=== PATIENT | male | born 1960 | race Caucasian/White ===

== ENCOUNTER → 2020-04-18 14:32 | Outpatient (BNVA) | payer BC, SELFPAY | PROVIDERS: PCP Internal Medicine Pulmonary Disease; Visit Provider Urology | DX: Z76.89 Persons encountering health services in other specified circumstances (principal) ==

== ENCOUNTER → 2021-06-03 11:10 | Outpatient (BNVA) | payer BC, SELFPAY | PROVIDERS: PCP Internal Medicine; Visit Provider Urology ==

== ENCOUNTER 2022-05-27 07:29 | Outpatient (REF) | payer BC, SELFPAY ==
[2022-05-27 09:25] LABS: Prostate Specific Antigen 0.62 ng/mL (<0.05-4.0)
== END 2022-05-27 07:30 | disposition home or self-care (01) ==
LOC: HO.LAB 07:29
PROVIDERS: PCP Internal Medicine; Visit Provider Urology
DX: Z12.5 Encounter for screening for malignant neoplasm of prostate (principal); N40.1 Benign prostatic hyperplasia with lower urinary tract symptoms; N13.8 Other obstructive and reflux uropathy
CPT/HCPCS: 36415; 84153

== ENCOUNTER → 2022-06-04 11:21 | Outpatient (BNVA) | payer BC, SELFPAY | PROVIDERS: PCP Internal Medicine; Visit Provider Urology | DX: N40.1 Benign prostatic hyperplasia with lower urinary tract symptoms (principal); N13.8 Other obstructive and reflux uropathy; N52.01 Erectile dysfunction due to arterial insufficiency | CPT/HCPCS: 51798 ==

== ENCOUNTER → 2022-08-07 09:31 | Outpatient (BNVA) | payer BC, SELFPAY | PROVIDERS: PCP Internal Medicine; Visit Provider Urology | DX: Z13.89 Encounter for screening for other disorder (principal) ==

== ENCOUNTER 2023-02-10 10:42 | Outpatient (AMB) | payer BC, SELFPAY ==
--- NOTE | 2023-02-10 10:50 | MHC.OFFVIS ---
Intake Intake Visit Reasons: 6m/PVR Intake Note: Patient is Present for Follow Up PVR Urology Medication: Tadalafil, Doxazosin (Patient states he is no longer taking Sildenafil) Antibiotic Allergies: None Blood Thinners: None [facility] PVR: 56 Allergies No Known Allergies Allergy (Verified 02/10/23 10:52) Medication List - Last Reconciled 02/10/23 by Bucky Boyce MD doxazosin 8 mg PO DAILY sildenafil 100 mg PO DAILY PRN 30 days tadalafil 20 mg PO ONCE PRN 30 days tadalafil 20 mg PO .PRN 30 days tadalafil 5 mg PO DAILY 90 days HPI HPI Comments History of Present Illness Details Octaviano is a pleasant male. He is a patient of Dr. Barbosa. He is seen for the following urologic conditions - lower urinary tract symptoms - renal cyst - erectile dysfunction Good response to daily tadalafil with on demand addition Refilled provided Six month follow-up Lower Urinary Tract Symptoms: Current visit is for further evaluation of, lower urinary tract symptoms, predominate obstructive symptoms. Current treatment includes medication, alpha ivett, , doxazosin 8mg Prostate Symptom Score Moderate (9-19), Bother 3 04/19 , Mild (0-8), Bother 2. Symptoms include intermittency, weak stream, straining, nocturia (>2) Results from testing include uroflow was performed Yes with a voided volume of 246 with a maximum flow rate (Q max) 11.8 based on the [place] nomagram this represents the following percentile 10 the following patterns were seen capped renal/bladder us Yes date 09/14/2016 PVR 24 prostate size 48 Prior Prostate Score moderate. PSA 09/16 0.8 PCP 09/17 0.6, T 410, 04/21 0.6, 06/24 1.4, 05/25 0.6 Prostate volume <30 gm. Renal lesion: repeat US in 2019. They present for reevaluation of renal mass characterized as, left side, simple cyst. The renal mass was diagnosed incidentally. Imaging included 09/16 , a renal ultrasound, no progression, showing class I cyst(s), >5.9 cm in size, on the left 03/21 , a renal ultrasound, showing class I cyst(s), left 7.8 cm cyst. Erectile dysfunction: He presents today for for continued evaluation and management of erectile dysfunction. Current treatment includes 5 mg daily tadalafil 20 mg on demand - Viagra/sildenafil - nasal congestion At this time he experiences erections are partial and insufficient for vaginal penetration, GILLIAN 8-11 Moderate ED. Currently they are in a stable relationship. Recent labs included 09/16 , a testosterone level 359. Overall he is satisfied with the current management. Therapeutic plan includes continue tadalafil Review of Systems Const Denies chills and Denies fever(s) Card Reports no additional complaints and Denies syncope Resp Denies cough GI Denies abdominal pain and Denies heartburn Reports as per HPI and Denies change in libido Neuro Denies syncope Psych Denies change in libido Endo Denies change in libido Physical Exam Const General: cooperative, healthy appearing, comfortable and no acute distress Orientation/consciousness: patient oriented x3 HEENT Face and sinus: Yes normal facial exam Mouth: moist mucous membranes Neck Neck: Yes normal visual inspection, Yes full ROM and Yes trachea midline Chest Chest palpation & inspection: normal inspection of the chest Resp Effort & Inspection: normal respiratory effort, able to speak in complete sentences and no respiratory distress GI Inspection: Yes normal to inspection Back/Spine/Pelvis Cervical Spine: normal cervical lordosis Thoracic/Lumbar Spine: thoracic and lumbar spine normal to inspection Skin General skin exam: no rashes or lesions noted Neuro General: patient oriented x3, gait normal, tone normal and moves all extremities Extrem General: Yes normal to inspection and Yes capillary refill normal Office Procedures Post Void Residual Post Residual Void Post Void Residual (PVR): 56 36872-Pisy Void Residual by ultrasound Results AMB Urinalysis, Automated UA Leukoctes 0 Chun/uL Last Edit by GREGG Maria on 02/10/23 10:58 UA Nitrite Negative Last Edit by GREGG Maria on 02/10/23 10:58 UA Urobilinogen 0.2 mg/dL Last Edit by GREGG Maria on 02/10/23 10:58 UA Protein 0 mg/dL Last Edit by GREGG Maria on 02/10/23 10:58 UA pH 6.5 Last Edit by GREGG Maria on 02/10/23 10:58 UA Blood 0 Mukund/uL Last Edit by GREGG Maria on 02/10/23 10:58 UA Specific [place] 1.010 Last Edit by GREGG Maria on 02/10/23 10:58 UA Ketone Negative Last Edit by ANDERS MariaA on 02/10/23 10:58 UA Bilirubin 0 mg/dL Last Edit by Madison Hernandez RMA on 02/10/23 10:58 UA Glucose 0 mg/dL Last Edit by ANDERS MariaA on 02/10/23 10:58 Results Reviewed Results Reviewed: Laboratory Last Values Urine pH (Auto) 6.5 02/10/23 10:53 Specific [place] (Auto) 1.010 02/10/23 10:53 Urine Protein (Auto) 0 mg/dL 02/10/23 10:53 Glucose (UA)(Auto) 0 mg/dL 02/10/23 10:53 Urine Ketones (Auto) Negative 02/10/23 10:53 Urine Blood (Auto) 0 Mukund/uL 02/10/23 10:53 Urine Nitrite (Auto) Negative 02/10/23 10:53 Urine Bilirubin (Auto) 0 mg/dL 02/10/23 10:53 Urine Urobilinogen (Auto) 0.2 mg/dL 02/10/23 10:53 Leukocyte Esterase (Auto) 0 Chun/uL 02/10/23 10:53 Assessment & Plan Assessment & Plan (1) BPH w urinary obs/LUTS: Code(s): N40.1 - Benign prostatic hyperplasia with lower urinary tract symptoms; N13.8 - Other obstructive and reflux uropathy (2) Erectile dysfunction due to arterial insufficiency: Code(s): N52.01 - Erectile dysfunction due to arterial insufficiency Plan Six month follow-up Orders: Orders AMB Post Void Residual by ultrasound 02/10/23 N13.8 - Other obstructive and reflux uropathy, N40.1 - Benign prostatic hyperplasia with lower urinary tract symptoms Prostate Specific Antigen 6 Months N52.01 - Erectile dysfunction due to arterial insufficiency AMB Urinalysis Automated 02/10/23 Z13.9 - Encounter for screening, unspecified Patient Instructions: Imaging studies, laboratory and physical exam results were discussed and reviewed in detail. No major barriers to patient understanding were identified. An opportunity to ask questions regarding the treatment plan was provided. All questions were answered. The patient expressed understanding and agreement with the above treatment plan. The patient is aware they should contact our office by phone for worsening of their current condition or the appearance of new urologic symptoms. Compliance is encouraged with any medications and followup testing that is ordered. It is a privilege to participate in the urologic care of your patient. If you have any questions or concerns regarding treatment for the above conditions, or other urologic issues, please do not hesitate to contact me. The office telephone contact is [phone]. This note is constructed using voice recognition software. While every effort has been made to ensure accuracy sales representative gas service errors may have been included. Yours sincerely, Dr Bucky Boyce MD, N[facility] - Urology Providers of Expert, Compassionate Care for the Genitourinary System Coding Level of Care Code Est Pt Level 3 (56150) Diagnoses BPH w urinary obs/LUTS N40.1; N13.8 Erectile dysfunction due to arterial insufficiency N52.01 CPT Codes Post Residual Void - PVR CPT Code: 47385-Phel Void Residual by ultrasound ([id number])
== END 2023-02-10 11:41 | disposition home or self-care (01) ==
PROVIDERS: PCP Internal Medicine; Visit Provider Urology
DX: N40.1 Benign prostatic hyperplasia with lower urinary tract symptoms (principal); N13.8 Other obstructive and reflux uropathy; N52.01 Erectile dysfunction due to arterial insufficiency
CPT/HCPCS: 99213

== ENCOUNTER → 2023-02-10 10:42 | Outpatient (BNVA) | payer BC, SELFPAY | PROVIDERS: Visit Provider Urology | DX: N40.1 Benign prostatic hyperplasia with lower urinary tract symptoms (principal); N13.8 Other obstructive and reflux uropathy; N52.01 Erectile dysfunction due to arterial insufficiency; N28.1 Cyst of kidney, acquired | CPT/HCPCS: 51798; 81003 ==

== ENCOUNTER 2023-08-31 13:25 | Outpatient (AMB) | payer BC, SELFPAY ==
--- NOTE | 2023-08-31 13:26 | MHC.OFFVIS ---
Intake Visit Reasons: 6m/PSA(Set)Confirmed Intake Note: Patient is Present for Telephone Follow Up Urology Med: Doxazosin,Tadalafil, Sildenafil Antibiotic Allergy: None Blood Thinner: None Allergies No Known Allergies Allergy (Verified 08/31/23 13:28) HPI Comments Details: Octaviano is a pleasant male. He is a patient of Dr. Barbosa. He is seen for the following urologic conditions - lower urinary tract symptoms - renal cyst - erectile dysfunction Telemedicine Evaluation 15 min Consultation [employer] Milad Video Six-month follow-up Moderately good response to daily tadalafil with on demand Does have facial flushing Discussed this is a minus side effect Has rapid deflation Discussed penile constriction band or silicon ring. Information texted Refilled provided Six month follow-up Lower Urinary Tract Symptoms: Current visit is for further evaluation of, lower urinary tract symptoms, predominate obstructive symptoms. Current treatment includes medication, alpha ivett, , doxazosin 8mg Prostate Symptom Score Moderate (9-19), Bother 3 04/19 , Mild (0-8), Bother 2. Symptoms include intermittency, weak stream, straining, nocturia (>2) Results from testing include uroflow was performed Yes with a voided volume of 246 with a maximum flow rate (Q max) 11.8 based on the [place] nomagram this represents the following percentile 10 the following patterns were seen capped renal/bladder us Yes date 09/14/2016 PVR 24 prostate size 48 Prior Prostate Score moderate. PSA 09/16 0.8 PCP, 09/17 0.6, T 410, 04/21 0.6, 06/24 1.4, 05/25 0.6, 06/26 0.5 Prostate volume <30 gm. Renal lesion: repeat US in 2019. They present for reevaluation of renal mass characterized as, left side, simple cyst. The renal mass was diagnosed incidentally. Imaging included 09/16 , a renal ultrasound, no progression, showing class I cyst(s), >5.9 cm in size, on the left 03/21 , a renal ultrasound, showing class I cyst(s), left 7.8 cm cyst. Erectile dysfunction: He presents today for for continued evaluation and management of erectile dysfunction. Current treatment includes 5 mg daily tadalafil 20 mg on demand - Viagra/sildenafil - nasal congestion At this time he experiences erections are partial and insufficient for vaginal penetration, GILLIAN 8-11 Moderate ED. Currently they are in a stable relationship. Recent labs included 09/16 , a testosterone level 359. Overall he is satisfied with the current management. Therapeutic plan includes continue tadalafil Review of Systems Const All systems reviewed & are unremarkable except as noted in HPI and below Reports no additional complaints Resp Reports no additional complaints GI Reports no additional complaints Reports as per HPI Musc Reports no additional complaints Physical Exam Telemedicine evaluation Appropriate responses Regular breathing rate and rhythm HEENT Head: Yes normal to inspection Ears: hearing grossly normal bilaterally Eyes General: appearance normal, both eyes and all related structures Neck Neck: Yes normal visual inspection Chest Chest palpation & inspection: normal inspection of the chest Resp Effort & Inspection: normal respiratory effort and able to speak in complete sentences Telehealth Telehealth Telehealth Platform: [employer] Location of provider rendering services: practice address Location of patient: address on file Patient Identification confirmed using: Name, : Yes Telehealth method: video Patient verbally consented to treatment: Yes Patient verbally consented to billing insurance company: Yes Patient informed of any privacy concerns related to visit: Yes Minutes spent on Phone/Video with Pt.: 15 Assessment & Plan Assessment & Plan (1) BPH w urinary obs/LUTS: Code(s): N40.1 - Benign prostatic hyperplasia with lower urinary tract symptoms; N13.8 - Other obstructive and reflux uropathy Category: Medical (2) Erectile dysfunction due to arterial insufficiency: Code(s): N52.01 - Erectile dysfunction due to arterial insufficiency Category: Medical Plan Six-month follow-up Medications: Changed From tadalafil 60 min prior 20 mg PO .PRN 30 days 30 tabs 3RF sexual activity N52.01 - Erectile dysfunction due to arterial insufficiency, N52.9 - Male erectile dysfunction, unspecified To tadalafil 60 min prior 20 mg PO ONCE 30 days PRN 30 tabs 3RF sexual activity N52.01 - Erectile dysfunction due to arterial insufficiency, N52.9 - Male erectile dysfunction, unspecified Refilled tadalafil 5 mg PO DAILY 90 days 90 tabs 1RF sexual activity N52.01 - Erectile dysfunction due to arterial insufficiency Patient Instructions: Imaging studies, laboratory and physical exam results were discussed and reviewed in detail. No major barriers to patient understanding were identified. An opportunity to ask questions regarding the treatment plan was provided. All questions were answered. The patient expressed understanding and agreement with the above treatment plan. The patient is aware they should contact our office by phone for worsening of their current condition or the appearance of new urologic symptoms. Compliance is encouraged with any medications and followup testing that is ordered. It is a privilege to participate in the urologic care of your patient. If you have any questions or concerns regarding treatment for the above conditions, or other urologic issues, please do not hesitate to contact me. The office telephone contact is [phone]. This note is constructed using voice recognition software. While every effort has been made to ensure accuracy digital sales planner errors may have been included. Yours sincerely, Dr Bucky Boyce MD, [facility] - Urology Providers of Expert, Compassionate Care for the Genitourinary System Coding Level of Care Code Tele Est Pt Level 3 (50297) Diagnoses BPH w urinary obs/LUTS N40.1; N13.8 Erectile dysfunction due to arterial insufficiency N52.01
== END 2023-08-31 13:59 | disposition home or self-care (01) ==
LOC: HO.HUSH 13:25
PROVIDERS: PCP Internal Medicine; Visit Provider Urology
DX: N40.1 Benign prostatic hyperplasia with lower urinary tract symptoms (principal); N13.8 Other obstructive and reflux uropathy; N52.01 Erectile dysfunction due to arterial insufficiency
CPT/HCPCS: 99213

== ENCOUNTER → 2023-08-31 13:25 | Outpatient (BNVA) | payer BC, SELFPAY | PROVIDERS: PCP Internal Medicine; Visit Provider Urology ==

== ENCOUNTER 2024-03-02 10:22 | Outpatient (AMB) | payer BC, SELFPAY ==
--- NOTE | 2024-03-02 10:26 | A.OFFVIS_ITS ---
Intake Visit Reasons: 6m follow up Intake Note: Patient is present for PVR Follow Up Urology Med: Sildenafil, Tadalafil Antibiotic Allergy: None Blood Thinner: None Last PSA: 08/2023 0.5 Last PVR:56ml Todays PVR: 10ml Chief Of Police Required: No Accompanied by: Self / Same As Patient Allergies No Known Allergies Allergy (Verified 08/31/23 13:28) HPI Comments Details: Octaviano is a pleasant male. He is a patient of Dr. Barbosa. He is seen for the following urologic conditions - lower urinary tract symptoms - renal cyst - erectile dysfunction Six-month follow-up Had previously discussed penile constriction band for rapid penile deflation Otherwise remains on tadalafil Refills provided Link to constriction band Lower Urinary Tract Symptoms: Current visit is for further evaluation of, lower urinary tract symptoms, predominate obstructive symptoms. Current treatment includes medication, alpha ivett, , doxazosin 8mg Prostate Symptom Score Moderate (9-19), Bother 3 04/19 , Mild (0-8), Bother 2. Symptoms include intermittency, weak stream, straining, nocturia (>2) Results from testing include uroflow was performed Yes with a voided volume of 246 with a maximum flow rate (Q max) 11.8 based on the [place] nomagram this represents the following percentile 10 the following patterns were seen capped renal/bladder us Yes date 09/14/2016 PVR 24 prostate size 48 Prior Prostate Score moderate. PSA 09/16 0.8 PCP, 09/17 0.6, T 410, 04/21 0.6, 06/24 1.4, 05/25 0.6, 06/26 0.5 Prostate volume <30 gm. Renal lesion: repeat US in 2019. They present for reevaluation of renal mass characterized as, left side, simple cyst. The renal mass was diagnosed incidentally. Imaging included 09/16 , a renal ultrasound, no progression, showing class I cyst(s), >5.9 cm in size, on the left 03/21 , a renal ultrasound, showing class I cyst(s), left 7.8 cm cyst. Erectile dysfunction: He presents today for for continued evaluation and management of erectile dysfunction. Current treatment includes 5 mg daily tadalafil 20 mg on demand - Viagra/sildenafil - nasal congestion At this time he experiences erections are partial and insufficient for vaginal penetration, GILLIAN 8-11 Moderate ED. Currently they are in a stable relationship. Recent labs included 09/16 , a testosterone level 359. Overall he is satisfied with the current management. Therapeutic plan includes continue tadalafil Review of Systems Const Denies chills and Denies fever(s) Card Reports no additional complaints and Denies syncope Resp Denies cough GI Denies abdominal pain and Denies heartburn Reports as per HPI and Denies change in libido Neuro Denies syncope Psych Denies change in libido Endo Denies change in libido Physical Exam Const General: cooperative, healthy appearing, comfortable and no acute distress Orientation/consciousness: patient oriented x3 HEENT Face and sinus: Yes normal facial exam Mouth: moist mucous membranes Neck Neck: Yes normal visual inspection, Yes full ROM and Yes trachea midline Chest Chest palpation & inspection: normal inspection of the chest Resp Effort & Inspection: normal respiratory effort, able to speak in complete sentences and no respiratory distress GI Inspection: Yes normal to inspection Back/Spine/Pelvis Cervical Spine: normal cervical lordosis Thoracic/Lumbar Spine: thoracic and lumbar spine normal to inspection Skin General skin exam: no rashes or lesions noted Neuro General: patient oriented x3, gait normal, tone normal and moves all extremities Extrem General: Yes normal to inspection and Yes capillary refill normal Office Procedures Post Void Residual Post Residual Void Post Void Residual (PVR): 10 [id number]-[id number] Void Residual by ultrasound Assessment & Plan Assessment & Plan (1) Erectile dysfunction due to arterial insufficiency: Code(s): N52.01 - Erectile dysfunction due to arterial insufficiency Category: Medical (2) BPH w urinary obs/LUTS: Code(s): N40.1 - Benign prostatic hyperplasia with lower urinary tract symptoms; N13.8 - Other obstructive and reflux uropathy Category: Medical Plan Six-month follow-up Orders: Orders AMB Post Void Residual by ultrasound Today N13.8 - Other obstructive and reflux uropathy, N40.1 - Benign prostatic hyperplasia with lower urinary tract symptoms Patient Instructions: Imaging studies, laboratory and physical exam results were discussed and reviewed in detail. No major barriers to patient understanding were identified. An opportunity to ask questions regarding the treatment plan was provided. All questions were answered. The patient expressed understanding and agreement with the above treatment plan. The patient is aware they should contact our office by phone for worsening of their current condition or the appearance of new urologic symptoms. Compliance is encouraged with any medications and followup testing that is ordered. It is a privilege to participate in the urologic care of your patient. If you have any questions or concerns regarding treatment for the above conditions, or other urologic issues, please do not hesitate to contact me. The office tele phone contact is [phone]. This note is constructed using voice recognition software. While every effort has been made to ensure accuracy impregnating helper errors may have been included. Yours sincerely, Dr Bucky Boyce MD, [facility] - Urology Providers of Expert, Compassionate Care for the Genitourinary System Coding Level of Care Code Est Pt Level 4 (01216) Diagnoses Erectile dysfunction due to arterial insufficiency N52.01 BPH w urinary obs/LUTS N40.1; N13.8 CPT Codes Post Residual Void - PVR CPT Code: 71704-Kcir Void Residual by ultrasound ([id number])
== END 2024-03-02 10:56 | disposition home or self-care (01) ==
LOC: HO.HUSH 10:22
PROVIDERS: PCP Internal Medicine; Visit Provider Urology
DX: N52.01 Erectile dysfunction due to arterial insufficiency (principal); N40.1 Benign prostatic hyperplasia with lower urinary tract symptoms; N13.8 Other obstructive and reflux uropathy
CPT/HCPCS: 99214

== ENCOUNTER → 2024-03-02 10:22 | Outpatient (BNVA) | payer BC, SELFPAY | PROVIDERS: PCP Internal Medicine; Visit Provider Urology | DX: N52.01 Erectile dysfunction due to arterial insufficiency (principal); N40.1 Benign prostatic hyperplasia with lower urinary tract symptoms; N13.8 Other obstructive and reflux uropathy | CPT/HCPCS: 51798 ==

== ENCOUNTER 2024-08-30 11:42 | Outpatient (AMB) | payer BC, SELFPAY ==
--- NOTE | 2024-08-30 11:42 | A.OFFVIS_ITS ---
Intake Visit Reasons: 6m follow up Intake Note: Patient is present for 6M F/U Urology Medication:TADALAFIL Antibiotic Allergy:NONE Blood Thinner:NONE Catering Sous Chef Required: No Allergies No Known Allergies Allergy (Verified 08/30/24 11:43) HPI Comments Details: Octaviano is a pleasant male. He is a patient of Dr. Barbosa. He is seen for the following urologic conditions - lower urinary tract symptoms - renal cyst - erectile dysfunction Telemedicine Evaluation 15 min Consultation [employer] Six-month follow-up Had previously discussed penile constriction band for rapid penile deflation Otherwise remains on tadalafil with good effectiveness Would like to continue with current therapy One year follow-up PSA office Lower Urinary Tract Symptoms: Current visit is for further evaluation of, lower urinary tract symptoms, predominate obstructive symptoms. Current treatment includes medication, alpha ivett, , doxazosin 8mg Prostate Symptom Score Moderate (9-19), Bother 3 04/19 , Mild (0-8), Bother 2. Symptoms include intermittency, weak stream, straining, nocturia (>2) Results from testing include uroflow was performed Yes with a voided volume of 246 with a maximum flow rate (Q max) 11.8 based on the Cassie nomagram this represents the following percentile 10 the following patterns were seen capped renal/bladder us Yes date 09/14/2016 PVR 24 prostate size 48 Prior Prostate Score moderate. PSA 09/16 0.8 PCP, 09/17 0.6, T 410, 04/21 0.6, 06/24 1.4, 05/25 0.6, 06/26 0.5 Prostate volume <30 gm. Renal lesion: repeat US in 2019. They present for reevaluation of renal mass characterized as, left side, simple cyst. The renal mass was diagnosed incidentally. Imaging included 09/16 , a renal ultrasound, no progression, showing class I cyst(s), >5.9 cm in size, on the left 03/21 , a renal ultrasound, showing class I cyst(s), left 7.8 cm cyst. Erectile dysfunction: He presents today for for continued evaluation and management of erectile dysfunction. Current treatment includes 5 mg daily tadalafil 20 mg on demand - Viagra/sildenafil - nasal congestion At this time he experiences erections are partial and insufficient for vaginal penetration, GILLIAN 8-11 Moderate ED. Currently they are in a stable relationship. Recent labs included 5/17 , a testosterone level 359. Overall he is satisfied with the current management. Therapeutic plan includes continue tadalafil Review of Systems Const All systems reviewed & are unremarkable except as noted in HPI and below Reports no additional complaints Resp Reports no additional complaints GI Reports no additional complaints Reports as per HPI Musc Reports no additional complaints Physical Exam Telemedicine evaluation Appropriate responses Regular breathing rate and rhythm HEENT Head: Yes normal to inspection Ears: hearing grossly normal bilaterally Eyes General: appearance normal, both eyes and all related structures Neck Neck: Yes normal visual inspection Chest Chest palpation & inspection: normal inspection of the chest Resp Effort & Inspection: normal respiratory effort and able to speak in complete sentences Telehealth Telehealth Location of provider rendering services: practice address Location of patient: address on file Patient Identification confirmed using: Name, : Yes Telehealth method: voice only Patient verbally consented to treatment: Yes Patient verbally consented to billing insurance company: Yes Patient informed of any privacy concerns related to visit: Yes Assessment & Plan Assessment & Plan (1) BPH w urinary obs/LUTS: Code(s): N40.1 - Benign prostatic hyperplasia with lower urinary tract symptoms; N13.8 - Other obstructive and reflux uropathy Category: Medical (2) Erectile dysfunction due to arterial insufficiency: Code(s): N52.01 - Erectile dysfunction due to arterial insufficiency Category: Medical Plan Twelve month follow-up PSA prior Orders: Orders Prostate Specific Antigen 12 Months N13.8 - Other obstructive and reflux uropathy, N40.1 - Benign prostatic hyperplasia with lower urinary tract symptoms Medications: Refilled tadalafil 60 min prior 20 mg PO ONCE 30 days PRN 30 tabs 3RF sexual activity N52.01 - Erectile dysfunction due to arterial insufficiency, N52.9 - Male erectile dysfunction, unspecified Discontinued tadalafil On demand medication take 60 minutes before intended activity Discontinued Reason: Patient Completed Course 20 mg PO ONCE 30 days PRN 30 tabs 0RF sexual activity N52.01 - Erectile dysfunction due to arterial insufficiency Patient Instructions: This note is constructed using voice recognition software. While every effort has been made to ensure accuracy staff trainer errors may have been included. Imaging studies, laboratory and physical exam results were discussed and reviewed in detail. No major barriers to patient understanding were identified. An opportunity to ask questions regarding the treatment plan was provided. All questions were answered. The patient expressed understanding and agreement with the above treatment plan. The patient is aware they should contact our office by phone for worsening of their current condition or the appearance of new urologic symptoms. Compliance is encouraged with any medications and followup testing that is ordered. It is a privilege to participate in the urologic care of your patient. If you have any questions or concerns regarding treatment for the above conditions, or other urologic issues, please do not hesitate to contact me. The office telephone contact is [phone]. Sincerely, Dr Bucky Boyce MD, [facility] - Urology Compassionate Specialist Care for the Genitourinary System Coding Level of Care Code Tele Est Pt Level 3 (32286) Diagnoses BPH w urinary obs/LUTS N40.1; N13.8 Erectile dysfunction due to arterial insufficiency N52.01
--- OUTSIDE RECORDS SUMMARY | 2024-08-30 13:16 | XMS_ITS | Data Portability ---
Author Organization [place] - [facility], Allergy Address [address] [facility] [address] [place] [phone] Care Team Providers Care Extractor Operator Name Role Phone SRIDEVI URIAS Primary Care Provider Assessment No assessment recorded. Plan of Treatment Reminders Order Date Submit Date Provider Last Modified By Organization Details Last Modified Time Details Appointments None recorded. Lab None recorded. Referral None recorded. Procedures polysomno graphy (PROC) 2024 025 [facility], [address] [place] [address], [id number], 5 09:30:39 Surgeries None recorded. Imaging None recorded. Medication Orders None recorded. Patient TargetsNo targets recorded. Patient InstructionsNo instructions recorded. Reason for Referral None Reported. 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 SARWAT NOLEN MD [address] [place] [address],[place] [address], [place], [phone] , [place] [facility] 5 15:18:37 Dyspnea 332274850 Active 2024 SARWAT NOLEN MD [address] [place] [address],[place] [address], [phone] , [place] [facility] 5 15:18:43 Inspirato ry stridor 12706824 Active 2024 SARWAT NOLEN MD [address] [facility],[place] [address], [place], [phone] , [facility] [place] 5 15:18:47 Obstructi ve sleep apnea of adult 408879661873 3 Active 2024 SARWAT NOLEN MD [address] [facility],[place] [address], [place], [phone] , [facility] - [facility] [place] 5 15:27:32 Problem Notes None recorded. Procedures Surgical History Date Name Laterality Status Provider Name and Address Organization Details Recorded Time 07/19/2024 FFL_RE completed SARWAT NOLEN MD [address] [facility],[place] [address], [place], [phone], [facility] - [facility] [place] 07/19/2024 15:18:51 Imaging Results None recorded. Procedure Notes None recorded. Medical Equipment None Reported. Medications Name Sig Start Date Stop Date Status Note LastModified by Organization Details LastModified Time Stool Softener 100 mg capsule TAKE 1 CAPSULE BY MOUTH 2 TIMES A DAY NEEDED FOR CONSTIPAT ION active Not Available Not Available No t Available doxazosin 8 mg tablet TAKE 1 TABLET BY MOUTH EVERY DAY active Not Available Not Available No t Available omeprazole 20 mg capsule,de layed release TAKE 1 CAPSULE BY MOUTH EVERY DAY active Not Available Not Available No t Available finasterid e 5 mg tablet TAKE 1 TABLET BY MOUTH EVERY DAY active Not Available Not Available No t Available tadalafil 5 mg tablet TAKE ONE TABLET BY MOUTH ONCE DAILY FOR SEXUAL ACTIVITY active Not Available Not Available No t Available tadalafil 20 mg tablet TAKE ONE TABLET BY MOUTH 60 MINUTES PRIOR TO SEXUAL ACTIVITY IF NEEDED . MAX OF 1 TABLET IN 24 HOURS. active Not Available Not Available No t Available Vitamin D 2019 active Medicatio n ID: [id number] Br and Name: Vitamin D Send Method: E-Prescri bed Subs Allowed: subs OK Medica tionGener icName: Vitamin D Not Available Not Available Not Available Multivitam ins 2019 active Medicatio n ID: [id number] Br and Name: Multivita mins Send Method: E-Prescri bed Subs Allowed: subs OK Medica tionGener icName: Multivita mins Not Available Not Available Not Available Gavilax 17 gram/dose oral powder DISSOLVE 17GM IN 4 - 8 OZ OF BEVERAGE AND TAKE BY MOUTH ONCE DAILY active Not Available Not Available No t Available omeprazole magnesium 20 mg capsule,de layed release Take 40 mg by mouth once a day 2019 active Medicatio n ID: [id number] Du ration Value: 30 Prescrib ed By Name: Martin Almanzar Name: omeprazol e magnesium Send Method: E-Prescri bed Subs Allowed: subs OK Medica tionGener icName: omeprazol e magnesium Not Available Not Available Not Available Vitals Date Recorded Body height Body mass index (BMI) Body weight Provider Name and Address Organization Details Last Updated DateTime 07/19/2024 170.18 cm 28.5 kg/m2 95442.81 g Adán Reis [place] - [facility] 07/19/2024 15:07:58 Social History None recorded. Functional Status None recorded. Mental Status None recorded. Family History Nothing Reported. Medical History No medical history recorded. Past Encounters Encounter ID Performer Location Encounter Start Date Encounter Closed Date Diagnosis/Indication Diagnosis SNOMED-CT Code Diagnosis ICD10 Code Diagnosis Note [id number] SARWAT NOLEN MD [facility] on [address] [place] [phone] 07/19/2024 14:44:23 07/19/2024 15:25:32 Disorder of vocal cord 85610941 J38.3 I discussed paradoxica l vocal cord motion. I discussed nasal breathing during these episodes. I discussed that there are no tumors or lesions and gave reassuranc e. I offered meeting with the speech pathologis t to discuss other strategies but he declined. He will continue to manage conservati vely. Dyspnea 171127420 R06.00 see above Inspiratory stridor 5859 6002 R06.1 See above Obstructiv e sleep apnea of adult 9952271263 103 G47.33 I recommend an updated sleep study as he may be a candidate for inspire however it depends upon the results. I will order a sleep study and plan follow-up to reassess. Health Concerns Section Related Observation LastModified by Organization Detai ls LastModified Time None Recorded Concern Status LastModified by Organization Details LastModified Time None Recorded Advance Directives Directive None Recorded Payers Encounter Date Sequence Insurance Name Policy Number Policy Phipps Covered Member ID Phipps Member ID Guarantor Name 07/19/2024 1 KELSEA: MESERET (PPO) [id number] Dionisio Pan [id number] Dionisio Pan Notes Date Note Type Note Provider Name and Address Organization Details Recorded Time 07/19/2024 text/html He has history o f vocal cord spasm. He has seen Dr. Rader for this in 02/2020. He has these episodes 3-4 times per year. He knows to breathe through his nose when it happens. He is wondering if there is anything else he can. He takes prilosec for GERD and does not have much breakthrough. In between episodes his voice and breathing is ok. He has a history of obstructive sleep apnea. He is not able to tolerate a CPAP. His sleep study was over 10 years ago. SARWAT NOLEN MD [address] [place] [address], [phone], [facility] - [facility] 07/19/2024 15:29:51
== END 2024-08-30 13:05 | disposition home or self-care (01) ==
LOC: HO.HUSH 11:42
PROVIDERS: PCP Internal Medicine; Visit Provider Urology
DX: N40.1 Benign prostatic hyperplasia with lower urinary tract symptoms (principal); N13.8 Other obstructive and reflux uropathy; N52.01 Erectile dysfunction due to arterial insufficiency
CPT/HCPCS: 99213